=== PATIENT | female | born 1960 | race Caucasian/White ===

== ENCOUNTER 2024-07-04 08:50 | Outpatient (AMB) | payer BC, SELFPAY ==
--- OUTSIDE RECORDS SUMMARY | 2024-07-04 09:01 | XMS_ITS | Encounter Summary ---
Author Organization [facility] Address [address] [place] [address] Phone Care Team Providers Care Field Care Manager Name Role Phone Buddy Dos Santos MD Primary Care Provider [phone] Buddy Dos Santos MD Unavailable [phone] Encounter Details Date Type Department Care Team (Late st Contact Info) Description 04/22/2024 Procedure Pass [facility], [address] [address] Social History Tobacco Use Types Packs/Day Years Used Date Smoking Tobacco: Never Smokeless Tobacco: Never Alcohol Use Standard Drinks/Week Comments No 0 (1 standard drink = 0.6 oz pur e alcohol) Child or Family Care Answer Date Record ed Do you have problems with on e of the following making it difficult for you to work, study, or receive health care? No 04/22/2024 Education Answer Date Recorded Are you interested in help w ith more adult education (for example, completing high school, GED, job training, learning the [place] language, technical skills, or developing parenting skills)? No 04/22/2024 Are you concerned about learning? Not on file 04/22/2024 No 04/22/2024 Yes 04/22/2024 Food Answer Date Recorded Within the past 6 months we worried whether our food would run out before we got money to buy more. Never True 04/22/2024 Within the past 6 months the food we bought just didn't last and we didn't have enough money to get more. Never True Residential Stability Answer Date Recor ded What is your housing situation today? I have rose gold 04/22/2024 How many times have you move d in the past 12 months? Zero (I did not move) 04/22/2024 Paying for Meds Answer Date Recorded Do you have trouble paying for medicines? No 04/22/2024 Paying Utility Bills Answer Date Record ed Do you have trouble paying your heating or elect ricity bill? No 04/22/2024 Transportation Answer Date Recorded Has the lack of transportati on kept you from medical appointments or from getting medications? No 04/22/2024 Unemployment Answer Date Recorded Are you currently unemployed or working on a part-time or temporary basis, and looking for work? Yes 04/06/2022 Digital Access Answer Date Recorded No 04/22/2024 Yes 04/22/2024 Do you have reliable internet access at home? Ye s 04/22/2024 Do you have a device (e.g., phone, tablet, computer) with a working camera? I choose not to answer 04/22/2024 Intimate Partner Violence Answer Date R ecorded Denied Basic Needs Not on file 04/22/2024 In the past 12 months have y ou been in a relationship with a person who hurts, threatens, or tries to control you? No 04/22/2024 Worried food would run out Not on file 04/22 In the past 12 months have y ou been in a relationship with a person who hurts, threatens, or tries to control you? 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[employer], 2 days/wk Not on file Not on file Not on file documented as of this encounter Plan of Treatment Upcoming Encounters Date Type Department Care Team (Late st Contact Info) Description 04/28/2025 10:30 AM EDT Office Visit [facility] [address] [place] [address] [place] [address] Buddy Dos Santos MD [address] [place] [address], [address] OZZIE Guo [address] documented as of this encounter Visit Diagnoses Not on filedocumented in this encounter Additional Health Concerns Assessment Noted Time A Body Mass Index follow-up plan has been documented for the patient 04/24/2024 7:58 PM EST PHQ-2 Depression Total Score: 0 04/23/19 10:31 AM EST documented as of this encounter Care Teams Field Care Manager Relationship Specialty Start Date End Date Buddy Dos Santos MD [address] [place] [phone] PCP - General Internal Medicine 04/03/17 Buddy Dos Santos MD [address] [place] [phone] Insurance Assigned Provider 05/26/23 documented as of this encounter Additional Source Comments The information contained in this document represents components of the legal health record. It is not the complete legal health record.[facility]
--- OUTSIDE RECORDS SUMMARY | 2024-07-04 09:02 | XMS_ITS | Encounter Summary ---
Author Organization [facility] Address [address] [place] [address] Care Team Providers Care Log Turner Name Role Phone Levon, Yariolivia Primary Care Provider [phone] Encounter Details Date Type Department Care Team (Late st Contact Info) Description 12/24/2023 myChart Message Intial Department [address] [place] [id number] Mychart, Generic Provider [facility] [place] [id number] Questionnaire Submission Social History Tobacco Use Types Packs/Day Years Used Date Smoking Tobacco: Never Smokeless Tobacco: Never Comments:: Alcohol Use Standard Drinks/Week Comments Yes 0 (1 standard drink = 0.6 oz pur e alcohol) 1 drink every 2 weeks Comments No Sex and Gender Information Value Date Recorded Sex Assigned at Female 03/27/2023 8:21 AM EST Legal Sex Female 1:11 AM EDT Gender Identity Female 03/27/2023 8:21 AM EST Sexual Orientation Choose not to disclose 2023 8:21 AM EST documented as of this encounter Plan of Treatment Upcoming Encounters Date Type Department Care Team (Late st Contact Info) Description 07/08/2024 9:30 AM EDT Hospital Encounter [facility] [address] [place] [address] Andrea Curran MD [address] [place] [address] 07/08/2024 9:30 AM EDT Anesthesia Event [facility] [address] [place] [address] Krishna Larios MD [address] [place] [address] 07/08/2024 9:30 AM EDT - 07/08/2024 9:55 AM EDT Surgery [facility] [address] [place] [address] Andrea Curran MD [address] [place] [address] COLONOSCOPY SCREENING, HIGH RISK WITH POSSIBLE MODERATE SEDATION Scheduled Procedures Name Priority Associated Diagnoses Date/Ti me COLONOSCOPY SCREENING, HIGH RISK WITH POSSIBLE MODERATE SEDATION Polyp of colon 07/08/2024 9:30 AM EDT documented as of this encounter Visit Diagnoses Not on filedocumented in this encounter Care Teams Log Turner Relationship Specialty Start Date End Date Buddy Dos Santos [address] [place] [phone] PCP - General Internal Medicine 05/10/18 documented as of this encounter
--- OUTSIDE RECORDS SUMMARY | 2024-07-04 09:02 | XMS_ITS | Encounter Summary ---
Author Organization [facility] Address [address] [place] [address] Care Team Providers Care Social Contact Worker Name Role Phone LevonBuddy Primary Care Provider [phone] Reason for Visit * Reason Onset Date Comments Med Refill 07/01/2024 Encounter Details Date Type Department Care Team (Late st Contact Info) Description 07/01/2024 Refill [facility] [address] [place], [place] [id number] Truck Driver Supervisor: Andrea Melton MD [address] [place] [address] [phone] Screen for colon cancer Social History Tobacco Use Types Packs/Day Years [...] Description 07/08/2024 9:30 AM EDT Hospital Encounter [facility] [address] [place] [address] Andrea Curran MD [address] [place] [address] [phone] 07/08/2024 9:30 AM EDT Anesthesia Event [facility] [address] [place] [address] Krishna Larios MD [address] [place] [address] 07/08/2024 9:30 AM EDT - 07/08/2024 9:55 AM EDT Surgery [facility] [address] [place] [address] Andrea Curran MD [address] [place] [phone] COLONOSCOPY SCREENING, HIGH RISK WITH POSSIBLE MODERATE SEDATION Scheduled Procedures Name Priority Associated Diagnoses Date/Ti me COLONOSCOPY SCREENING, HIGH RISK WITH POSSIBLE MODERATE SEDATION Polyp of colon 07/08/2024 9:30 AM EDT documented as of this encounter Goals Goal Patient Goal Type Associated Problems Recent Progress Patient-Stated? Author Autogenera vineet Goal Care Plan Autogenerated Problem No Optime Background User documented as of this encounter Visit Diagnoses Diagnosis Screen for colon cancer Special screening for malignant neoplasms, colon Polyp of colon Benign neoplasm of colon documented in this encounter Additional Health Concerns Active Problems Noted Date Diagnosed Date Autogenerated Problem 06/27/2024 documented as of this encounter Care Teams Social Contact Worker Relationship Specialty Start Date End Date Buddy Dos Santos [address] [place] [phone] PCP - General Internal Medicine 05/10/18 documented as of this encounter
--- OUTSIDE RECORDS SUMMARY | 2024-07-04 09:02 | XMS_ITS | Clinical Summary ---
Author Organization [facility] Address [address] [place] [address] Care Team Providers Care Horticultural Specialty Grower Field Name Role Phone Buddy Dos Santos Primary Care Provider [phone] Allergies Active Allergy Reactions Criticality Noted Date Comments Gadolinium-Containing Contrast Media Itching Medium 05/10/2018 Medications diphenhydrAMINE (BENADRYL) 25 mg capsule Take 25 mg by mouth every 6 hours as needed (insomnia). Active ibuprofen (MOTRIN) 200 mg tablet Take 200 mg by mouth every 6 hours as needed for pain, fever or headache. Active naproxen sodium (ALEVE) 220 mg tablet Take 220 mg by mouth 2 times a day as needed for pain, fever or headache. Active Vitamin D3 25 mcg (1,000 unit) capsule Take 1 capsule by mouth once a day. Active sodium sulfate-potassi um sulfate-magnesi um sulfate (Suprep Bowel Prep Kit) solutionIndicat ions:Screen for colon cancer Take according to instructions provided by physician. 1 kit 4 Active polyethylene glycol (GoLYTELY) solution Refer to prep instructions provided by your physician. Add 1 gallon (128 ounces) of water to the GoLytely/Colyte/ Nulytely container and refrigerate. At 4 PM the day before your procedure, drink one 8-ounce glass of the bowel preparation solution every 10 - 15 minutes until half the container is empty, about 8 glasses. Five (5) hours before your procedure drink one 8-ounce glass of the bowel preparation solution every 10 - 15 minutes until the entire container is empty. Continue to drink clear non-alcoholic liquids up until 2 hours prior to your procedure. 4000 mL 5 08/21/19 25 Active sodium sulfate-potassi um sulfate-magnesi um sulfate (SUPREP) solution Take according to instructions provided by physician 354 mL 07/02/2024 3:31 PM EDT Active Active Problems Problem Noted Date Diagnosed Date Dyspnea on exertion 03/24/2014 Adjustment reaction with anxiety and depression 10/29/2013 Breast cancer 10/24/2013 Pain in joint of right shoulder 01/15/2012 Endometriosis 11/30/2008 Esophageal reflux 11/30/2008 Cervical cancer 11/30/2008 Encounters Date Type Department Care Team Description 07/01/2024 Refill [facility] [address] [place] [address] Picker Feeder: Andrea Melton MD Screen for colon cancer 05/22/2024 Prep for Case [facility] [address] [place] [address] Picker Feeder: Andrea Melton MD from Last 3 Months Family History Medical History Relation Name Comments Solid Tumor Father Cancer Mother Other Other 1 Family History of hypertension Other Other 2 Family History of lung cancer Tammi's thyroiditis Sister Other Son Psoriasis Son Relation Name Status Comments Father Mother Other 1 Other 2 Sister Alive Son Alive Social History Tobacco Use Types Packs/Day Years [...] not to disclose 2023 8:21 AM EST Last Filed Vital Signs Vital Sign Reading Time Taken Comments Blood Pressure 162/78 03/28/2023 8:58 AM EST man ual Pulse 105 03/28/2023 8:58 AM EST Temperature 37.1 ??C (98.8 ??F) 03/28/2023 8:58 AM ES T Respiratory Rate 13 05/10/2018 11:45 AM EDT Oxygen Saturation 93% 05/10/2018 11:45 AM EDT Inhaled Oxygen Concentration - - Weight 82.1 kg (181 lb) 03/28/2023 8:58 AM EST Height 162.6 cm (5' 4 ) 03/28/2023 8:58 AM EST Body Mass Index 31.07 03/28/2023 8:58 AM EST Plan of Treatment Upcoming Encounters Date Type Department Care Team (Late st Contact Info) Description 07/08/2024 9:30 AM EDT Hospital Encounter [facility] [address] [place] [address] Andrea Curran MD [address] [place] [address] 07/08/2024 9:30 AM EDT Anesthesia Event [facility] [address] [place] [address] Krishna Larios MD [address] [place] [phone] 07/08/2024 9:30 AM EDT - 07/08/2024 9:55 AM EDT Surgery [facility] [address] [place] [address] Andrea Curran MD [address] [place] [address] COLONOSCOPY SCREENING, HIGH RISK WITH POSSIBLE MODERATE SEDATION Scheduled Procedures Name Priority Associated Diagnoses Date/Ti me COLONOSCOPY SCREENING, HIGH RISK WITH POSSIBLE MODERATE SEDATION Polyp of colon 07/08/2024 9:30 AM EDT Health Maintenance Due Date Last Done Comments Cervical Cancer Screening 1960 HIV Screening 1960 HPV and Pap Smear 1960 Hepatitis C Screening 1960 Pap Smear 1960 Osteoporosis Screening 2009 Pneumococcal Vaccine: 50+ Ye ars (2 of 2 - PPSV23) 02/12/2014 12/18/2013 Colonoscopy 05/11/2023 05/10/2018, 05/10/2018 COVID-19 Vaccine (6 - 2024-2 5 season) 2023 02/01/2022, 06/28/2021, 01/21/2021, Additional history exists Alcohol/Substance Use Screening 02/20/2024 Depression Screening and Follow-Up 02/20/2024 Health Care Proxy Review 02/20/2024 Social Drivers of Health Kala ual Screening 02/20/2024 Influenza Vaccine (Season Ended) 2024 03/20/2023, 12/26/2021, 01/18/2021, Additional history exists DTaP,Tdap,and Td Vaccines (3 - Td or Tdap) 01/18/2031 01/18/2021, 01/24/2006 RSV Vaccine (60+ years old a nd patients) (1 - 1-dose 75+ series) 2034 Hepatitis B Vaccines Completed 11/28/2007, 08/15/2007, 07/04/2007 Mammogram Discontinued 11/04/2013, 10/27/2013 Zoster Vaccines Completed 05/03/2020, 02/24/2020 Goals Goal Patient Goal Type Associated Problems Recent Progress Patient-Stated? Author Autogenera vineet Goal Care Plan Autogenerated Problem No Optime Background User Procedures * Due to [place] [employer] law, this organization might not be sharing negative HIV tests. Procedure Name Priority Date/Time Associated Diagnosis Comments COLONOSCOPY 05/10/2018 US BREAST AXILLA ONLY RIGHT Routine 11/04/2013 9:00 AM EDT from Last 3 Months or Most Recently Relevant to Health Maintenance Results * Due to [place] [employer] law, this organization might not be sharing negative HIV tests. * COLONOSCOPY (05/10/2018) Narrative Procedure Note Andrea Curran MD - 05/10/2018 10:14 AM EDT Gastroenterology Patient Name: Roseanna Olmstead Procedure Date: 05/10/2018 10:14 AM Date of : 1960 Admit Type: Outpatient Age: 58 Room: [place] [address] Gender: Female Note Status: Finalized Attending MD: Andrea Curran MD Procedure: Colonoscopy Indications: Heme positive stool Comorbidities Providers: Andrea Curran MD Referring MD: Requesting Provider: Medicines: Monitored Anesthesia Care Complications: No immediate complications. Estimated Blood Loss: Estimated blood loss: none. Procedure: After I obtained informed consent, the scope was passed under direct vision. Throughout the procedure, the patient's blood pressure, pulse, and oxygen saturations were monitored continuously. The Colonoscope was introduced through the anus and advanced to theterminal ileum, with identification of the appendiceal orificeand IC valve. The colonoscopy was performed without difficulty. The bowel preparation used was SUPREP. The quality of the bowel preparation was good. Findings: The perianal and digital rectal examinations were normal. The terminal ileum appeared normal. A 3 mm polyp was found in the ileocecal valve. The polyp was sessile. The polyp was removed with a cold snare. Resection and retrieval were complete. A diminutive polyp was found in the sigmoid colon. The polyp was sessile. The polyp was removed with a cold biopsy forceps. Resectionand retrieval were complete. External hemorrhoids were found during retroflexion. The hemorrhoids were medium-sized. Impression: - The examined portion of the ileum was normal. - One 3 mm polyp at the ileocecal valve, removed with a cold snare. Resected and retrieved. - One diminutive polyp in the sigmoid colon, removedwith a cold biopsy forceps. Resected and retrieved. - External hemorrhoids. Recommendation: - Discharge patient to home (ambulatory). - Await pathology results. - A letter will be mailed to you with your pathology results. If you do not hear from us in 2 weeks, please call our office for results. - Repeat colonoscopy in 5 years for surveillance. - Use fiber, for example Citrucel, Fibercon, Konsyl or Metamucil. Andrea Curran MD 05/10/2018 10:48:36 AM This report has been signed electronically. Number of Addenda: 0 Note Initiated On: 05/10/2018 10:14 AM us Andrea Curran MD PROVATION PROCEDURES Final Result * US Right Breast US Axilla (11/04/2013 9:00 AM EDT) Anatomical Region Laterality Modality Breast Right Ultrasound 11/04/2013 8:00 AM EDT Addenda Addendum by Elina Anthony, ABIOLA on 01/05/2014 7:40 PM EST Addendum Begins Patient left message to cancel appointment. Will be going [place] for [place]. [place] [place] Addendum EndsHistory: Right breast cancer. ??Request to evaluate the Impressions 01/05/2014 7:40 PM EST RIGHT BREAST: Abnormal axillary lymph nodes on ultrasound. Findings demonstrate a suspicious abnormality. Cytological analysis is recommended at this time. The findings and recommendation were discussed with the patient and we will schedule the procedure. I have reviewed the examination and the report and I concur with the reading. OVERALL ASSESSMENT - CATEGORY 4 - SUSPICIOUS END OF IMPRESSION Narrative 01/05/2014 7:40 PM EST right axilla. RIGHT AXILLA ULTRASOUND Comparison has been made to previous images from as far back as 2013. Right Axilla Ultrasound Findings: Targeted color Doppler ultrasound demonstrates two abnormal axillary lymph nodes which demonstrate cortical nodularity and cortical thickening. These nodes measure 11 x 5 mm with a cortex up to 4mm ??at 12 cm from the nipple and ??11 x 5 mm with a cortex up to 3mm at 11 cm from the nipple. Procedure Note Elina Anthony RN - 10/19/2016 right axilla. RIGHT AXILLA ULTRASOUND Comparison has been made to previous images from as far back as 2013. Right Axilla Ultrasound Findings: Targeted color Doppler ultrasound demonstrates two abnormal axillary lymph nodes which demonstrate cortical nodularity and cortical thickening. These nodes measure 11 x 5 mm with a cortex up to 4mm at 12 cm from the nipple and 11 x 5 mm with a cortex up to 3mm at 11 cm from the nipple. IMPRESSION: RIGHT BREAST: Abnormal axillary lymph nodes on ultrasound. Findings demonstrate a suspicious abnormality. Cytological analysis is recommended at this time. The findings and recommendation were discussed with the patient and we will schedule the procedure. I have reviewed the examination and the report and I concur with the reading. OVERALL ASSESSMENT - CATEGORY 4 - SUSPICIOUS END OF IMPRESSION us Luz Marina Leonard MD IMG BI PROCEDURES Final Result from Last 3 Months or Most Recently Relevant to Health Maintenance Additional Health Concerns Active Problems Noted Date Diagnosed Date Autogenerated Problem 06/27/2024 Insurance [facility] Care Teams Horticultural Specialty Grower Field Relationship Specialty Start Date End Date Buddy Dos Santos [address] [place] [id number] PCP - General Internal Medicine 05/10/18
--- OUTSIDE RECORDS SUMMARY | 2024-07-04 09:02 | XMS_ITS | Clinical Summary ---
Author Organization [facility] Address [address] [facility] [address] [place] [phone] Phone Care Team Providers Care Elevator Dispatcher Name Role Phone Buddy Dos Santos MD Primary Care Provider Buddy Dos Santos MD Unavailable [phone] Allergies Active Allergy Reactions Criticality Noted Date Comments Gadolinium-Containing Contrast Media Hives,Itching Medium 11/04/2013 Medications ibuprofen (ADVIL,MOTRIN) 200 MG tablet Take 200 mg by mouth every 6 (six) hours as needed for pain (specific location in comments). Active diphenhydrAMIN E (BENADRYL) 25 mg capsule Take 25 mg by mouth every 6 (six) hours as needed. As needed nightly for insomnia Active triamcinolone acetonide 0.1 % cream Apply topically 2 (two) times a day. 30 g 4 Active cholecalcifero l, vitamin D3, 25 mcg (1,000 unit) capsule Take 1 capsule by mouth daily. Active sodium-potassi um-magnesium sulfates (SUPREP) 17.5-3.13-1.6 gram SolR Take according to instructions provided by physician. 4 Active predniSONE (DELTASONE) 10 MG tablet 50 mg oral given 13, 7, and 1 hour prior to contrast administration 15 tablet 5 Active Active Problems Problem Noted Date Diagnosed Date White coat syndrome without diagnosis of hyperte nsion 04/22/2023 Assessment & Plan (04/22/2023 10:26 PM EST): Her blood pressure is often elevated in the office but normal at home. Will continue to monitor. Elevated blood sugar 04/20/2023 Assessment & Plan (04/22/2023 10:26 PM EST): Will get updated A1c. Class 1 obesity 04/11/2022 Assessment & Plan (04/22/2023 10:24 PM EST): Continue to encourage healthy diet and exercise. Hyperlipidemia 04/09/2018 Assessment & Plan (04/22/2023 10:26 PM EST): Will get updated lipid panel. Dyspnea on exertion 03/24/2014 Adjustment reaction with anxiety and depression 10/29/2013 History of breast cancer 10/24/2013 Pain in joint of right shoulder 01/15/2012 Endometriosis 11/30/2008 Esophageal reflux 11/30/2008 Encounters Date Type Department Care Team Description 06/17/[address] [place] [address] Nima Terrazas RN Results 06/13/2024 7:11 AM EDT - 06/13/2024 11:59 PM EDT Hospital Encounter [address] [address] Buddy Dos Santos MD Discharge Disposition: Home or Self Care 04/22/2024 10:30 AM EST Office Visit [address] [place] [address] Buddy Dos Santos MD Encounter for general adult medical examination with abnormal findings (Primary Dx); Cervical radiculopathy 04/22/2024 Procedure Pass [address] [address] from Last 3 Months Immunizations Immunization Administration Dates Next Due COVID-19 (Pre-12/11) Pfizer Vaccine, mRNA, PF 06/09/2020,05/19/2020 Hepatitis B Adult 11/28/2007,08/15/2007,07/04/19 08 Influenza Quadrivalent MDCK Preservative Free IM 03/20/2023,12/26/2021 Influenza Quadrivalent Preservative Free IM 03/22 Influenza Quadrivalent w/ Preservative IM 2019,12/21/2014 Influenza Recombinant Jocy valent Preservative Free IM 01/18/2021 Influenza Trivalent w/ Preservative IM 4 MMRV 07/22/1969 Pneumococcal conjugate PCV13 12/18/2013 Polio, Unspecified Formulation 01/26/1963,1962,11/10/1962 Td (adult),2 Lf Tetanus Toxo id, PF, Adsorbed 01/18/2021 Tdap 01/24/2006 Zoster recombinant 05/03/2020,02/24/2020 Family History Medical History Relation Comments Dementia Father Glaucoma Father Heart disease Father Hyperlipidemia Father Hypertension Father Prostate cancer Father Heart attack Maternal Grandfather Heart disease Maternal Grandfather Polymyositis Maternal Grandmother Hyperlipidemia Mother Lung cancer Mother non small cell Pacemaker Mother Alzheimer's disease Paternal Grandfather Endometrial cancer Paternal Grandmother Osteoarthritis Sister 1 knee replacement s in 40s Thyroid disease Sister 1 Anxiety disorder Sister 2 Depression Sister 2 Thyroid disease Sister 2 Relation Status Comments Daughter Alive Father spastic colon Maternal Grandfather Maternal Grandmother Mother Paternal Grandfather (Age 82) Paternal Grandmother Sister 1 Sister 2 Son 1 Alive Son 2 Alive Social History Tobacco Use Types Packs/Day Years Used Date Smoking Tobacco: Never Smokeless Tobacco: Never Tobacco Cessation:Counseling Given: No Alcohol Use Standard Drinks/Week Comments No 0 [...] high school, GED, job training, learning the [place] language, technical skills, or developing parenting skills)? [...] file Not on file Not on file Last Filed Vital Signs Vital Sign Reading Time Taken Comments Blood Pressure 130/80 04/22/2024 10:43 AM EST ho me reading Pulse 102 04/22/2024 10:26 AM EST Temperature 36 ??C (96.8 ??F) 04/22/2024 10:26 AM EST Respiratory Rate 20 01/17/2022 4:00 PM EST Oxygen Saturation 98% 04/22/2024 10:26 AM EST Inhaled Oxygen Concentration - - Weight 83 kg (183 lb) 06/07/2024 10:24 AM EDT Height 160 cm (5' 3 ) 06/07/2024 10:24 AM EDT Body Mass Index 32.42 06/07/2024 10:24 AM EDT Plan of Treatment Upcoming Encounters Date Type Department Care Team (Late st Contact Info) Description 04/28/2025 10:30 AM EDT Office Visit [facility] [address] [place] [address] [place] [address] Budyd Dos Santos MD [address] [place] [address], [address] OZZIE Guo [address] [email or web address] Health Maintenance Due Date Last Done Comments HEPATITIS C SCREENING 1977 HIV ONE-TIME SCREENING (18-65 YEARS) 1977 COLOGUARD 02/03/2004 FIT TEST 02/03/2004 FOBT 02/03/2004 SIGMOIDOSCOPY 02/03/2004 VIRTUAL COLONOSCOPY 02/03/2004 PNEUMOCOCCAL VACCINES (50+ years) (2 of 2 - PPSV23) 12/18/2014 12/18/2013 COLONOSCOPY 05/11/2023 05/10/2018 COLORECTAL CANCER SCREENING 05/11/2023 COVID-19 VACCINE ( season) 2023 02/01/2022, 06/28/2021, 01/21/2021, Additional history exists OSTEOPOROSIS SCREENING INITIAL (ONE-TIME) 02/03/2024 07/30/2009 MAMMOGRAM 04/28/2024 04/28/2022, 030 04/2020, 04/21/2019, Additional history exists PAP SMEAR 01/05/2025 01/06/2020, 12/20, 12/21/2014 DEPRESSION SCREENING 04/22/2025 04/22/2024 SCREENING FOR DIABETES 04/23/2026 04/24/2023, 2022 LIPID PANEL 04/23/2028 04/24/2023, 030 06/2023, 04/24/2023, Additional history exists Adult Td,Tdap Booster 01/18/2031 01/18/2021, 006 RSV VACCINE (1 - 1-dose 75+ series) 2034 ZOSTER VACCINES Completed 05/03/2020, 02/24/2020 SMOKING STATUS SCREENING (Once After 26 Yrs) Completed 04/22/2024 HEPATITIS A VACCINES Aged Out No long er eligible based on patient's age to complete this topic HIB VACCINES Aged Out No longer eligi ble based on patient's age to complete this topic MENINGOCOCCAL VACCINES (ACWY) Aged Out No longer eligible based on patient's age to complete this topic Medical Devices Not on file Procedures Procedure Name Priority Date/Time Associated Diagnosis Comments MRI CERVICAL SPINE (NEURO) WITH AND WITHOUT CONTRAST Urgent/patient waiting 06/13/2024 8:13 AM EDT Cervical radiculopathy OUTSIDE HDL Routine 04/24/2023 MAMMOGRAPHY Routine 04/28/2022 PAP TEST Routine 01/06/2020 12:00 AM EST COLONOSCOPY FOR RESULT ENTRY ONLY Routine 05/10/2018 OUTSIDE BONE DENSITY SCREENING Routine 07/30/2009 from Last 3 Months or Most Recently Relevant to Health Maintenance Results * MRI CERVICAL SPINE (NEURO) WITH AND WITHOUT CONTRAST (06/13/2024 8:13 AM EDT) Anatomical Region Laterality Modality C-spine Magnetic Resonan ce 06/13/2024 8:16 AM EDT Impressions 06/13/2024 8:31 AM EDT 1. ??Postoperative changes from laminectomy at the C4 and C5 levels. There is an enhancing lesion with lobulated intradural extramedullary components and tumor invasion through the right C4-5 neural foramen with bony expansion as above. There is remodeling of the cervical cord due to the residual tumor, however no spinal canal narrowing or abnormal cord signal. Narrative 06/13/2024 8:31 AM EDT MRI CERVICAL SPINE (NEURO) WITH AND WITHOUT CONTRAST Referring clinician's provided indication for this examination in Epic: * Cervical radiculopathy, prior C-spine surgery; h/o C2-4 meningioma, increased tingling in the fingers, previous physical therapy trial worsened pain TECHNIQUE: MRI CERVICAL SPINE (NEURO) WITH AND WITHOUT CONTRAST Multi-sequence, multi-planar MRI of the cervical spine was performed with and without intravenous contrast. ?? COMPARISON: FINDINGS: CERVICAL SPINE: Alignment and Vertebrae: There is reversal of the normal cervical lordosis. No spondylolisthesis. There is postoperative change for laminectomy at the at the C4 and C5 levels. Marrow: No bone marrow replacing lesion. Discs and Endplates: There is mild intervertebral disc height loss at C6-7. There is moderate disc height loss at C5-6. Spinal Cord: No abnormal signal of the cervical cord. There is remodeling the cervical cord due to a dural based enhancing lesion. Contrast: There is an intradural extramedullary dural-based enhancing lesion at the C4 and C5 levels. The anterior epidural nodular component at C4 level measures 6 x 10 x 10 mm (AP, RL, SI). There is a smaller posterior dural based component to C4 level and a 5 x 10 x 10 mm (AP, RL, SI) nodular anterior epidural component at the C5 level. There is foraminal tumor at the right C4-5 level with widening of the neural foramen. The foraminal tumor component measures 13 mm in diameter and extends out approximately 3 cm along the the course of the right C5 nerve root. Soft Tissue: Normal. No prevertebral edema. Findings by level: C2-C3: No spinal canal or neural foraminal narrowing. C3-C4: No spinal canal or neural foraminal narrowing. C4-C5: There is a laminectomy. No spinal canal or neural foraminal narrowing. There is tumor throughout the expanded right C4 neural foramen. C5-C6: There is a laminectomy. There is a broad-based disc protrusion without spinal canal or left neural foraminal narrowing. There is mild right neural foraminal narrowing. C6-C7: There is mild spinal canal narrowing due to broad-based disc protrusion. No right neural foraminal narrowing. There is mild left neural foraminal narrowing. C7-T1: No spinal canal or neural foraminal narrowing. Procedure Note Nadeem Ross DO - 06/13/2024 MRI CERVICAL SPINE (NEURO) WITH AND WITHOUT CONTRAST Referring clinician's provided indication for this examination in Epic: *Cervical radiculopathy, prior C-spine surgery; h/o C2-4 meningioma,increased tingling in the fingers, previous physical therapy trialworsened pain TECHNIQUE: MRI CERVICAL SPINE (NEURO) WITH AND WITHOUT CONTRAST Multi-sequence, multi-planar MRI of the cervical spine was performed withand without intravenous contrast. COMPARISON: FINDINGS: CERVICAL SPINE: Alignment and Vertebrae: There is reversal of the normal cervicallordosis. No spondylolisthesis. There is postoperative change forlaminectomy at the at the C4 and C5 levels. Marrow: No bone marrow replacing lesion. Discs and Endplates: There is mild intervertebral disc height loss atC6-7. There is moderate disc height loss at C5-6. Spinal Cord: No abnormal signal of the cervical cord. There is remodelingthe cervical cord due to a dural based enhancing lesion. Contrast: There is an intradural extramedullary dural-based enhancinglesion at the C4 and C5 levels. The anterior epidural nodular component atC4 level measures 6 x 10 x 10 mm (AP, RL, SI). There is a smallerposterior dural based component to C4 level and a 5 x 10 x 10 mm (AP, RL,SI) nodular anterior epidural component at the C5 level. There isforaminal tumor at the right C4-5 level with widening of the neuralforamen. The foraminal tumor component measures 13 mm in diameter andextends out approximately 3 cm along the the course of the right C5 nerveroot. Soft Tissue: Normal. No prevertebral edema. Findings by level: C2-C3: No spinal canal or neural foraminal narrowing. C3-C4: No spinal canal or neural foraminal narrowing. C4-C5: There is a laminectomy. No spinal canal or neural foraminalnarrowing. There is tumor throughout the expanded right C4 neuralforamen. C5-C6: There is a laminectomy. There is a broad-based disc protrusionwithout spinal canal or left neural foraminal narrowing. There is mildright neural foraminal narrowing. C6-C7: There is mild spinal canal narrowing due to broad-based discprotrusion. No right neural foraminal narrowing. There is mild left neuralforaminal narrowing. C7-T1: No spinal canal or neural foraminal narrowing. IMPRESSION: 1. Postoperative changes from laminectomy at the C4 and C5 levels. Thereis an enhancing lesion with lobulated intradural extramedullary componentsand tumor invasion through the right C4-5 neural foramen with bonyexpansion as above. There is remodeling of the cervical cord due to theresidual tumor, however no spinal canal narrowing or abnormal cordsignal. Buddy Dos Santos MD IMG MR XSPECIALTY Final Res ult * Outside HDL (04/24/2023) HDL - External 52 40 - 80 mg/dL Historical Provider LAB BLOOD ORDERABLES Brittany l Result * HM MAMMOGRAPHY FOR RESULT ENTRY ONLY (04/28/2022) Historical Provider HEALTH MAINTENANCE Edited Result - Final * Pap Smear (01/06/2020 12:00 AM EST) 01/06/2020 01/07/2020 8:3 6 AM EST Narrative SEE NARRATIVE - 01/13/2020 8:50 [place] [address] [employer] Professor: Keara Thomas MD ?? CLINIC MANAGER Cytology Report FINAL DIAGNOSIS A. ??PAP SMEAR (SUREPATH) CE: SPECIMEN ADEQUACY: Satisfactory for evaluation; transformation zone present. INTERPRETATION: NEGATIVE FOR INTRAEPITHELIAL LESION OR MALIGNANCY. Electronically Signed Out By: ??JESSEE Ivan(ASCP) The Pap test is a screening test primarily for squamous cancers and precursors and has associated false-negative and false-positive results. ??New technologies such as liquid-based preparations may decrease but will not eliminate all false-negative results. ??Regular sampling and follow-up of unexplained clinical signs and symptoms are recommended to minimize false negative results. PROCEDURES/ADDENDA HPV Testing (Requested) Ordered Date: 01/07/2020 ? A. PAP SMEAR (SUREPATH) CE: ??Human Papilloma Virus Test Negative for high-risk human papillomavirus types 16, 18, 45 and the Other high risk probe set (Includes 31, 33, 35, 39, 51, 52, 56, 58, 59, 66, 68) by [employer] Onclarity HR-HPV analysis. Clinical correlation is advised. This HPV test was performed at [facility], [address] [place] [address]. This test has been FDA approved for SurePath cervical cytology specimens. The accuracy and precision of this test for all other specimen sources has been verified in the Cytopathology Laboratory of the [facility] and has not been cleared or approved by the U.S. Food and Drug Administration. Clinical correlation is advised. ? CLINICAL HISTORY Date of Last Menstrual Period: ??Not Provided Menstrual History: ??Unknown Other Clinical Conditions: ??Screening Pap SPECIMEN SOURCE A: PAP SMEAR (SUREPATH) CE Patient Name: ??TENZIN TALAVERA : ??1960 (Age: 59) Sex: ??F Institution: [facility] Location: ??[facility] Date of Collection: ??01/06/2020 Date of Reported: ??01/08/2020 11:59 Results to: Buddy Dos Santos MD Buddy Dos Santos MD CYTOLOGY ORDERABLES Edited Result - Final SEE NARRATIVE * COLONOSCOPY FOR RESULT ENTRY ONLY (05/10/2018) Historical Provider HEALTH MAINTENANCE Final Result * OUTSIDE BONE DENSITY SCREENING (07/30/2009) BONE DENSITY SCREENING - EXTERNAL done Historical Provider HEALTH MAINTENANCE Final Result from Last 3 Months or Most Recently Relevant to Health Maintenance Insurance [facility] PPO EPO PPO EPO PPO EPO PPO EPO PPO EPO PPO EPO PPO EPO PPO EPO [facility] PPO EPO Care Teams Elevator Dispatcher Relationship Specialty Start Date End Date Buddy Dos Santos MD [address] [place] [address], [address] [place] [id number] PCP - General Internal Medicine 04/03/17 Buddy Dos Santos MD [address] [place] [address], [address] [place] [id number] Insurance Assigned Provider 05/26/23 Additional Source Comments The information contained in this document represents components of the legal health record. It is not the complete legal health record.[facility]
--- OUTSIDE RECORDS SUMMARY | 2024-07-04 09:02 | XMS_ITS | Referral Summary ---
Author Organization [facility] Address [address] [place] [address] Care Team Providers Care Report Manager Name Role Phone Glenna Dos Santosolivia Primary Care Provider [phone] Encounters Date Type Department Care Team Description 07/01/2024 Refill [facility] [address] [place] [phone] Stogy Maker: Andrea Melton MD Screen for colon cancer 05/22/2024 Prep for Case [facility] [address] [place] [address] Stogy Maker: Andrea Metlon MD from Last 3 Months Allergies Active Allergy Reactions Criticality Noted Date [...] to instructions provided by physician. 1 kit Active polyethylene glycol (GoLYTELY) solution Refer to [...] physician 354 mL 07/02/2024 3:31 PM EDT 4 Active Active Problems Problem Noted Date Diagnosed Date Dyspnea on exertion 03/24/2014 Adjustment reaction with anxiety and depression 10/29/2013 Breast cancer 10/24/2013 Pain in joint of right shoulder 01/15/2012 Endometriosis 11/30/2008 Esophageal reflux 11/30/2008 Cervical cancer 11/30/2008 Social History Tobacco Use Types Packs/Day Years [...] Description 07/08/2024 9:30 AM EDT Hospital Encounter [facility] [address] [place] [address] Andrea Curran MD [address] [place] [address] 07/08/2024 9:30 AM EDT Anesthesia Event [facility] [address] [place] [address] Krishna Larios MD [address] [place] [address] 07/08/2024 9:30 AM EDT - 07/08/2024 9:55 AM EDT Surgery [facility] [address] [place] [address] Andrea Curran MD [address] [place] [address] COLONOSCOPY SCREENING, HIGH RISK WITH POSSIBLE MODERATE SEDATION Scheduled Procedures Name Priority Associated Diagnoses Date/Ti me COLONOSCOPY SCREENING, HIGH RISK WITH POSSIBLE MODERATE SEDATION Polyp of colon 07/08/2024 9:30 AM EDT Goals Goal Patient Goal Type Associated Problems Recent Progress Patient-Stated? Author Autogenera vineet Goal Care Plan Autogenerated Problem No Optime Background User Procedures * Due to [place] [employer] law, this organization might not be sharing negative HIV tests. Procedure Name Priority Date/Time Associated Diagnosis Comments COLONOSCOPY 05/10/2018 US BREAST AXILLA ONLY RIGHT Routine 11/04/2013 9:00 AM EDT from Last 3 Months or Most Recently Relevant to Health Maintenance Results * Due to [place] [employer] law, this organization might not be sharing negative HIV tests. * COLONOSCOPY (05/10/2018) Narrative Procedure Note Andrea Curran MD - 05/10/2018 10:14 AM EDT Gastroenterology Patient Name: Roseanna Olmstead Procedure Date: 05/10/2018 10:14 AM Date of : 1960 Admit Type: Outpatient Age: 58 Room: [place] [address] Gender: Female Note Status: Finalized Attending MD: [...] 8:00 AM EDT Addenda Addendum by Elina Anthony RN on 01/05/2014 7:40 PM EST Addendum Begins Patient left message to cancel appointment. Will be going elsewhere for treatment. ([facility]) ?? Addendum EndsHistory: Right breast cancer. ??Request [...] CATEGORY 4 - SUSPICIOUS END OF IMPRESSION Luz Marina Leonard MD IMG BI PROCEDURES Final Result from Last 3 Months or Most Recently Relevant to Health Maintenance Additional Health Concerns Active Problems Noted Date Diagnosed Date Autogenerated Problem 06/27/2024 Insurance [facility] Care Teams Report Manager Relationship Specialty Start Date End Date Buddy Dos Santos [address] [place] [id number] PCP - General Internal Medicine 05/10/18
--- NOTE | 2024-07-04 09:05 | A.SPINEOV_ITS ---
Intake Visit Reasons: Neck pain Intake Note: Mrs. Olmstead is here today c/o neck pain. MRI done @ [facility] and [facility]. (brought discs) Investigation Manager Required: No Assessment & Plan Assessment & Plan (1) Recurrent meningioma of the spine: Code(s): D32.1 - Benign neoplasm of spinal meninges Category: Medical Plan Dear colleague Thank you for referring Roseanna Olmstead to the office today with a chief complaint of right-sided neck pain. HPI: This patient underwent a spinal tumor resection in 1991. The C4 nerve root was resected and she was told that it was a meningioma or schwannoma. In the last 5 years she complains of progressive right-sided neck pain that radiates to the top of her right arm. There maybe some increased weakness. An MRI was done which shows a well-defined contrast enhancing tumor at C4-5 that partially encase the spinal cord and then exits through the right C5 foramen into the soft tissue. The right C5 foramen is dilated, which is a sign of a longstanding process. The last scan was done in 2007 and does not show any tumor enhancement. Physical Exam: Grade 3/5 weakness of the right deltoid. Hypoesthesia in his same region. No signs of spinal cord compression Impression/Plan: This 64-year-old female presents with recurrent benign intraspinal tumor, differential diagnosis schwannoma versus meningioma. I discussed with the patient that this is a very slow growing process. The 1st step needs to establish if there is growth and therefore my 1st recommendation would be to repeat the MRI of the cervical spine in 6 months. The tumor extends through the C5 foramen and encases the vertebral artery and then goes into the soft tissues. I think treatment of this process needs to be done in a tertiary center where there is a multidisciplinary approach and the possibility for local radiation. I advised her to go to Lida Lu MD, the current chair of Neurosurgery at [facility]. Thank you for allowing me to participate in your patients care. total time spent was 45 minutes in counseling ,coordination of plan, personal review of imaging, surgical decision making and subsequent plan Shahab Silva MD, PhD Spine Fellowship Trained Neurosurgeon Director, [facility] Coding Level of Care Code New Pt Level 4 (53262) Diagnoses Recurrent meningioma of the spine D32.1
== END 2024-07-04 09:46 | disposition home or self-care (01) ==
LOC: HO.HNS 08:50
PROVIDERS: PCP Internal Medicine; Visit Provider Neurological Surgery
DX: D32.1 Benign neoplasm of spinal meninges (principal)
CPT/HCPCS: 99204